=== PATIENT | female | born 1990 | race Caucasian/White ===

== ENCOUNTER → 2021-02-22 14:00 | Outpatient (BNVA) | payer MEDICAID, SELFPAY | PROVIDERS: Family Provider Nurse Practitioner; PCP Nurse Practitioner Family; Visit Provider Nurse Practitioner Family | DX: Z11.3 Encounter for screening for infections with a predominantly sexual mode of transmission (principal); Z13.220 Encounter for screening for lipoid disorders; Z98.84 Bariatric surgery status; Z12.4 Encounter for screening for malignant neoplasm of cervix | CPT/HCPCS: 80053; 80061; 82306; 82607; 82746; 83540; 84443; 85025; 86592; 87086; 87491; 87530; 87591; 87661; 87806; 88175 ==

== ENCOUNTER → 2022-05-06 15:43 | Outpatient (BNVA) | payer MEDICAID, SELFPAY | PROVIDERS: Family Provider Nurse Practitioner; PCP Nurse Practitioner Family; Visit Provider Nurse Practitioner Family | DX: N92.0 Excessive and frequent menstruation with regular cycle (principal) | CPT/HCPCS: 80053; 85025 ==

== ENCOUNTER → 2022-11-14 09:10 | Outpatient (BNVA) | payer MEDICAID, SELFPAY | PROVIDERS: Family Provider Nurse Practitioner; PCP Nurse Practitioner Family; Visit Provider Nurse Practitioner Family | DX: F41.9 Anxiety disorder, unspecified (principal); F32.A Depression, unspecified; E66.9 Obesity, unspecified; G47.00 Insomnia, unspecified; K21.9 Gastro-esophageal reflux disease without esophagitis; E55.9 Vitamin D deficiency, unspecified | CPT/HCPCS: 80053; 82306; 84443 ==

== ENCOUNTER 2023-01-30 11:01 | Outpatient (CLI) | payer MEDICAID, SELFPAY ==
--- NOTE | 2023-01-30 11:25 | US_ITS ---
WS: [id number] US pelv w/transvag [id number] HISTORY: IUD COMPARISON: 08/12/2011 Uterus: 10.1 cm x 6.2 cm x 6.1 cm. Mildly enlarged anteverted uterus. Hypoechoic mass consistent with a fibroid in the RIGHT myometrium measures 2.1 x 2.4 x 2.0 cm. Additional fibroid in the posterior midline uterus measuring 3.5 x 2.6 x 2.9 cm. This fibroid does abut and displace the endometrium. Endometrium: 1.5 cm. Abnormal endometrium. Towards the fundal portion of the endometrium is a hypoech oic mass with shadowing centered along the endometrial canal. Mass measures 1.5 x 1.6 x 2.0 cm and ex tends into the posterior myometrium. There is mild increased vascularity. There is also mild thickeni ng of the more distal endometrium toward the cervix. No IUD is identified. Right ovary: 3.0 cm x 3.0 cm x 2.6 cm. Normal size and vascularity, no cystic or solid masses. Hypoec hoic mass RIGHT ovary measures 2.0 x 1.9 x 1.8 cm. Most consistent with a hemorrhagic corpus luteum. Left ovary: 2.2 cm x 1.4 cm x 3.0 cm. Normal size and vascularity, no cystic or solid masses. No free fluid in the cul-de-sac. US/US pelv w/transvag [id number] IMPRESSION: 1. No IUD is identified. Consider KUB radiograph to evaluate for extruded IUD into the peritoneal cavity. 2. Abnormal endometrium. Thickened endometrium with a mass towards the fundal portion measuring 1.5 x 1.6 x 2.0 cm. Likely submucosal fibroid. Due to its loc ation endometrial neoplasm needs to be considered. 3. Additional fibroids within the uterus.
== END 2023-01-30 11:02 | disposition home or self-care (01) ==
PROVIDERS: PCP Nurse Practitioner Family; Visit Provider Internal Medicine Cardiovascular Disease
DX: T83.9XXA Unspecified complication of genitourinary prosthetic device, implant and graft, initial encounter (principal); D25.9 Leiomyoma of uterus, unspecified; Y83.8 Other surgical procedures as the cause of abnormal reaction of the patient, or of later complication, without mention of misadventure at the time of the procedure
CPT/HCPCS: 76830; 76856

== ENCOUNTER 2023-08-12 09:17 | Outpatient (CLI) | payer MEDICAID, SELFPAY ==
--- NOTE | 2023-08-12 09:30 | US_ITS ---
WS: [id number] ULTRASOUND THYROID TECHNIQUE: Ultrasound of the thyroid. CLINICAL INFORMATION: Elevated thyroid peroxidase COMPARISON: 01/22/2017 FINDINGS: Thyroid: Right and left thyroid lobes are normal in size with diffuse heterogeneous echotexture. No t hyroid nodules are present. Slightly increased thyroid vascularity. Right thyroid lobe: 5.0 cm x 2.3 cm x 1.7 cm RIGHT lobe volume 9.9 cc Left thyroid lobe: 5.9 cm x 1.8 cm x 1.3 cm. LEFT lobe volume 6.9 cc Isthmus: 0.4 mm. Cervical lymphadenopathy: None. IMPRESSION: 1. Diffuse heterogeneous thyroid echotexture bilaterally more apparent compared to 2017 with slightl y increased vascularity. Findings can be seen with Endy's thyroiditis. Recommend correlation wit h thyroid function studies 2. Overall thyroid volume slightly decreased compared to previous. 3. No nodules to target for biopsy.
== END 2023-08-12 09:18 | disposition home or self-care (01) ==
LOC: RAD 09:18
PROVIDERS: PCP Nurse Practitioner Family; Visit Provider Nurse Practitioner Family
DX: R68.89 Other general symptoms and signs (principal)
CPT/HCPCS: 76536

== ENCOUNTER → 2024-03-08 09:54 | Outpatient (BNVA) | payer MEDICAID, SELFPAY | PROVIDERS: PCP Nurse Practitioner Family; Visit Provider Nurse Practitioner Family | DX: F32.A Depression, unspecified (principal); F41.9 Anxiety disorder, unspecified; E55.9 Vitamin D deficiency, unspecified; R53.82 Chronic fatigue, unspecified; Z98.84 Bariatric surgery status | CPT/HCPCS: 80053; 80061; 82306; 82607; 82746; 83550; 84443; 85025 ==